=== PATIENT | male | born 1970 | race Caucasian/White ===

== ENCOUNTER 2016-08-26 11:24 | Emergency (ER) | payer MEDICARE ==
[~2016-08-26] VITALS: Ht 177.8 cm; Wt 115.7 kg
[2016-08-26 11:24] VITALS: BP 126/74
== END 2016-08-26 11:55 | disposition home or self-care (01) ==
LOC: ER 11:27
DX: L50.9 Urticaria, unspecified (principal); F32.9 Major depressive disorder, single episode, unspecified; F17.200 Nicotine dependence, unspecified, uncomplicated; Z98.84 Bariatric surgery status
CPT/HCPCS: 99283; A4606; Z7610